=== PATIENT | female | born 1960 | race Caucasian/White ===

== ENCOUNTER → 2017-07-07 16:58 | Outpatient (CLI) | payer BC | END | disposition home or self-care (01) | LOC: D.MAMMO 11:00 | DX: Z12.31 Encounter for screening mammogram for malignant neoplasm of breast (principal) ==

== ENCOUNTER → 2018-07-20 16:53 | Outpatient (CLI) | payer BC | END | disposition home or self-care (01) | LOC: D.MAMMO 13:15 | DX: Z12.31 Encounter for screening mammogram for malignant neoplasm of breast (principal) ==

== ENCOUNTER 2019-07-24 09:26 | Outpatient (CLI) | payer BC | END 2019-07-24 23:59 | disposition home or self-care (01) | LOC: D.MAMMO 09:26 | PROVIDERS: ATTEND Obstetrics & Gynecology | DX: Z12.31 Encounter for screening mammogram for malignant neoplasm of breast (principal) ==

== ENCOUNTER 2019-08-20 08:10 | Day surgery (SDC) | payer BC ==
[~2019-08-20] VITALS: Ht 167.6 cm; Wt 58.1 kg
[~2019-08-20 08:10] MED LIST: COZAAR100 MG PO
[2019-08-20 08:57] LABS: HEMATOCRIT 43.9 % (36.0-48.0); MCH 33.7 pg (26.0-34.0); MCHC 34.2 g/dL (31.0-37.0); MCV 98.7 fL (80.0-100.0); MEAN PLATELET VOLUME 8.7 fL (7.4-10.4); RBC 4.45 10x6/uL (4.00-5.40); RDW 11.8 % (11.5-14.5); WBC 6.4 10x3/uL (4.8-10.8)
[2019-08-20 10:16] VITALS: BP 147/94; Ht 167.6 cm; Wt 58.1 kg
--- NOTE | 2019-08-20 13:50 | NUR ---
1350 FL DIET SERVED.
--- NOTE | 2019-08-24 09:50 | HP ---
PATIENT: AMMY QUINTANILLA MEDICAL RECORD: [id number] ACCOUNT: [id number] LOCATION:[facility] : 62 ADMISSION DATE: 08/20/19 PCP: KHUSHBOO ALMEIDA HISTORY AND PHYSICAL EXAMINATION HISTORY: Ms. Quintanilla is a 59-year-old female smoker with left vocal cord lesion. She is being admitted for microsuspension laryngoscopy with excision of left vocal cord lesion. PAST MEDICAL HISTORY: Includes hypertension. CURRENT MEDICATIONS: Losartan, Flonase, and Zyrtec. ALLERGIES: ASPIRIN AND IBUPROFEN. PHYSICAL EXAMINATION: GENERAL: Healthy-appearing with very hoarse voice. FACE: Normal, symmetric, no lesions. EYES: Sclerae and conjunctivae are normal. EARS: Some chronic changes, but no active infection. NOSE: No masses, polyps, or drainage. ORAL CAVITY AND OROPHARYNX: Tongue protrudes in midline. Pharynx is normal. NECK: No masses. No adenopathy. CHEST: Clear. CARDIOVASCULAR: Regular rate and rhythm. No murmur. Laryngoscopy reveals a large somewhat pedunculated mass in the middle of the left vocal cord moving up and down in the airway, more than 10 mm in size. IMPRESSION: Left vocal cord mass and hoarseness. PLAN: Microsuspension laryngoscopy, excision of left vocal cord lesion. TRANSINT:[id number] Voice Confirmation ID: [id number] DOCUMENT ID: [id number] GINO PHIPPS MD at 0950 CC: [id number] DICTATION DATE: 08/17/19 0854 RECYCLING OPERATOR: 08/17/19 1033 [facility] 08/20/[address] [address]
--- NOTE | 2019-08-24 09:50 | OP ---
PATIENT NAME: AMMY HERNANDEZ MEDICAL RECORD: [id number] :62 LOCATION:D.OPS ADMISSION DATE: SURGEON: KIRT FREEMAN MD DATE OF OPERATION: 08/20/2019 PREOPERATIVE DIAGNOSES: 1. Hoarseness. 2. Left vocal cord lesion. POSTOPERATIVE DIAGNOSES: 1. Hoarseness. 2. Left vocal cord lesion. PROCEDURE: Microsuspension laryngoscopy and excision of left vocal cord lesion. SURGEON: Kirt Freeman MD ANESTHESIA: General orotracheal. BLOOD LOSS: Less than 1 cc. SPECIMENS: Left vocal cord lesion. COMPLICATIONS: None. DISPOSITION: Recovery stable. FINDINGS: Lesion attached to the anterior left true vocal cord over 1 cm in size. PROCEDURE IN DETAIL: She was brought to the operating room and placed in supine position, sedated and intubated by anesthesia with a 6-0 cuffed tube. Table was turned 90 degrees. Head drapes were applied. She was positioned for laryngoscopy. Plastic upper tooth guard was placed. Kleinsasser J laryngoscope was inserted and elevated to expose the lesion and the retractor was attached in position. Microscope with 400 lens was brought in. The right cord was normal, left cord had a large lesion, pretty much obstructing everything could not even see either cord until used the suction to move it out of the way. It was attached to most of the anterior half of the left true vocal cord. It was folded laterally and then an upbiting scissor was used to make a cut on the mucosa along almost the medial edge of the true cord and then it was flipped medially and the same was done on the opposite side leaving as much mucosa to cover the cord as possible all the way up and was divided about 1 mm right before the anterior commissure. The specimen was sent for path. The cord was examined. It was clean and smooth. Afrin pledget was placed. It was removed right before extubation. Kleinsasser J laryngoscope and the plastic tooth guard was removed. She was awakened, extubated, and transported to recovery in good condition. No complications. TRANSINT:[id number] Voice Confirmation ID: [id number] DOCUMENT ID: [id number] OPERATIVE REPORT [id number] AMMY HERNANDEZ KIRT FREEMAN MD at 0950 CC: [id number] DICTATION DATE: 08/20/19 1304 PHYSICS DEPARTMENT CHAIR: 08/20/19 1313 DEP SDC 08/20/19 [facility] [address] [place] [address]
== END 2019-08-20 14:30 | disposition home or self-care (01) ==
LOC: D.OPS 08:10 → D.PAN 10:00 → D.OPS 10:30 → D.PAN 11:10 → D.OPS 11:45
PROVIDERS: Anesthesiology; ATTEND Otolaryngology
DX: J38.3 Other diseases of vocal cords (principal); R49.0 Dysphonia; Z72.0 Tobacco use; I10 Essential (primary) hypertension

== ENCOUNTER 2020-07-28 08:00 | Outpatient (CLI) | payer BC ==
[2019-08-20 10:16] VITALS: BMI 20.7
== END 2020-07-28 14:35 | disposition home or self-care (01) ==
LOC: D.MAMMO 08:00
PROVIDERS: ATTEND Family Medicine
DX: Z12.31 Encounter for screening mammogram for malignant neoplasm of breast (principal)

== ENCOUNTER → 2021-02-09 09:47 | Outpatient (CLI) | payer BC | END | disposition home or self-care (01) | LOC: D.HCCECHO 09:47 | DX: I10 Essential (primary) hypertension (principal) ==

== ENCOUNTER 2021-03-22 16:09 | Inpatient (IN) | payer BC ==
[~2021-03-22] VITALS: Ht 167.6 cm; Wt 58.1 kg
[2021-03-22 16:39] LABS: BILIRUBIN NEGATIVE (NEGATIVE); KETONE LARGE mg/dL (NEGATIVE); NITRITE NEGATIVE (NEGATIVE); UROBILINOGEN NORMAL mg/dL (< 2)
[2021-03-22 16:40] LABS: BACTERIA MANY HPF (NONE SEEN); SQUAMOUS EPITHELIAL 0-5 HPF (0-4); WHITE CELLS - URINE 0-5 HPF (0-4)
[2021-03-22 16:46] LABS: BASOPHILS 0.1 % (0-2); EOSINOPHILS 0 % (0-7); HEMATOCRIT 45.2 % (36.0-48.0); HEMOGLOBIN 15.8 g/dL (12-16); IMMATURE GRANULOCYTES 0.3 % (0-5); LYMPHOCYTE ABS# 1.15 10x3/uL (1.18-3.74); LYMPHOCYTES 6.9 % (15-50); MCH 34.1 pg (26.0-34.0); MCV 97.4 fL (80.0-100.0); MEAN PLATELET VOLUME 9.4 fL (7.4-10.4); MONOCYTES 2.1 % (2-11); NEUTROPHIL ABS# 15.09 10x3/uL (1.56-6.13); NEUTROPHILS 90.6 % (40-80); RBC 4.64 10x6/uL (4.00-5.40); RDW 12.1 % (11.5-14.5); WBC 16.7 10x3/uL (4.8-10.8)
[2021-03-22 16:52] LABS: PLATELET COUNT 305 10x3/uL (130-400)
[2021-03-22 16:57] LABS: CALC OSMOLALITY 278 mosm/kg (275-300); CALCIUM 10.8 mg/dL (8.5-10.1); CARBON DIOXIDE 28.8 mmol/L (21.0-32.0); CHLORIDE - SERUM 98 mmol/L (98-107); CREATININE - SERUM 0.7 mg/dL (0.6-1.3); GLUCOSE 141 mg/dL (74-106); POTASSIUM - SERUM 4.6 mmol/L (3.5-5.1); SODIUM 137 mmol/L (136-145); UREA NITROGEN 22 mg/dL (7-18); eGFR NON AFRICAN AMERICAN > 90 mL/min (90-120)
[2021-03-22 17:07] LABS: ALBUMIN 4.5 g/dL (3.4-5.0); ALKALINE PHOSPHATASE 57 U/L (30-120); ALT (SGPT) 47 U/L (10-68); AMYLASE - SERUM 52 U/L (25-115); BILIRUBIN - TOTAL 0.64 mg/dL (0.2-1.3); PROTEIN - SERUM 8.7 g/dL (6.4-8.2)
[2021-03-22 17:08] LABS: LIPASE 41 U/L (73-393); TROPONIN-I < 0.017 ng/mL (0.000-0.060)
--- NOTE | 2021-03-22 17:27 | NUR ---
pt going via stretcher to CT
--- NOTE | 2021-03-22 17:40 | NUR ---
Pt back in room from CT
[2021-03-22 19:13] VITALS: BP 137/79
--- NOTE | 2021-03-22 19:44 | NUR ---
HOMECARE AND FOLLOW UP INFORMATION PROVIDED, PT MOTHER ACKNOWLEDGED, PT STABLE AT DC
[2021-03-22 19:56] VITALS: BP 140/98
[2021-03-22 20:25] VITALS: BP 136/80
[2021-03-23] VITALS: BP 104/61
[2021-03-23 04:00] VITALS: BP 108/68
[2021-03-23 04:12] VITALS: BMI 20.7
[2021-03-23 05:58] LABS: BASOPHILS 0.2 % (0-2); EOSINOPHILS 0 % (0-7); HEMATOCRIT 38.9 % (36.0-48.0); IMMATURE GRANULOCYTES 0.2 % (0-5); LYMPHOCYTE ABS# 1.73 10x3/uL (1.18-3.74); LYMPHOCYTES 17.5 % (15-50); MCH 32.9 pg (26.0-34.0); MCHC 33.4 g/dL (31.0-37.0); MCV 98.5 fL (80.0-100.0); MONOCYTES 7.6 % (2-11); NEUTROPHIL ABS# 7.39 10x3/uL (1.56-6.13); NEUTROPHILS 74.5 % (40-80); PLATELET COUNT 261 10x3/uL (130-400); RBC 3.95 10x6/uL (4.00-5.40); RDW 12.1 % (11.5-14.5)
[2021-03-23 06:24] LABS: ALKALINE PHOSPHATASE 42 U/L (30-120); BILIRUBIN - TOTAL 0.23 mg/dL (0.2-1.3); CALCIUM 8.8 mg/dL (8.5-10.1); CARBON DIOXIDE 25.3 mmol/L (21.0-32.0); CHLORIDE - SERUM 104 mmol/L (98-107); CREATININE - SERUM 0.7 mg/dL (0.6-1.3); GLUCOSE 102 mg/dL (74-106); PROTEIN - SERUM 6.7 g/dL (6.4-8.2); SODIUM 137 mmol/L (136-145); eGFR NON AFRICAN AMERICAN > 90 mL/min (90-120)
[2021-03-23 06:31] LABS: WBC 9.9 10x3/uL (4.8-10.8)
[2021-03-23 07:08] LABS: ALBUMIN 3.3 g/dL (3.4-5.0); ALT (SGPT) 26 U/L (10-68); CALC OSMOLALITY 274 mosm/kg (275-300); UREA NITROGEN 16 mg/dL (7-18)
[2021-03-23 08:00] VITALS: BP 128/71
[2021-03-23 14:49] VITALS: BMI 20.6
--- NOTE | 2021-03-23 17:27 | NUR ---
0700 AWAKE IN BED ENCOURAGED IS USE PULLING 2000ML REFUSES SCD EDUCATED IMPORTANCE OF SCD VERBALIZED UNDERSTAIDING
--- NOTE | 2021-03-23 17:35 | NUR ---
1300 PT UNHOOKED IV AND AMBULATED IN [place] PER SELF WITHOUT RN KNOWING UPON RETURN RN RESTARTED NS AND MORPHINE HOGSHEAD INSPECTOR
--- NOTE | 2021-03-23 17:39 | NUR ---
1400 UNSURE IF PT IS GOING OUT TO SMOKE WILL CONFRONT HER
[2021-03-23 18:25] VITALS: Ht 167.6 cm; Wt 58.1 kg
--- NOTE | 2021-03-23 18:40 | NUR ---
1415 PT STATED SHE WAS NOT SMOKING
--- NOTE | 2021-03-23 19:30 | NUR ---
BEDSIDE REPORT. CHILD CARE ASSOCIATE TEACHER ON, BUT FLUID CHANNEL IS OFF, RESTARTED NS @ 125 PER ORDER. PT CURRENTLY DENIES PAIN/NAUSEA. PASSING GAS, CPOC.
[2021-03-23 20:00] VITALS: BP 120/68
[2021-03-24 04:00] VITALS: BP 124/79
--- NOTE | 2021-03-24 05:00 | NUR ---
ENTERED ROOM, PT AWAKE/ALERT. IV FLUID CHANNEL IS OFF AGAIN. ASKED PT IF SHE IS TURNING CHANNEL OFF, SHE REPLIED YES, "I'M FEELING GREAT, HAVEN'T REALLY NEEDED PAIN MEDICINE, AND DRINKING FLUIDS W/O N/V." RESTARTED NS, BUT SET TO KVO INCASE PT DOES REQUIRE HVAC MAINTENANCE TECHNICIAN. VERBALIZED UNDERSTANDING. PASSING GAS, NO BMs OF YET. CPOC.
--- NOTE | 2021-03-24 05:06 | NUR ---
I have reviewed this patient and I concur with the Shift Assessment completed by the Licensed Practical Nurse today this shift.
--- NOTE | 2021-03-24 06:03 | NUR ---
SIDE-LYING IN BED, EYES CLOSED, RESPIRATIONS EVEN/NON-LABORED. NO S/SX OF DISTRESS IV FLUID CHANNEL OFF AGAIN, BUT RN BURN STILL ACTIVE. RESTARTED FLUIDS, MONITORED PUMP FOR A FEW MINUTES TO ASSURE IT DOES NOT TURN OFF SPONTANEOUSLY. PLUGGED IN TO WALL. CTM.
--- NOTE | 2021-03-24 06:32 | NUR ---
PT OUT AMBULATING IN [place], REPORTS SHE JUST PASSED MEDIUM SIZED BM. NO PAIN/N/V. REQUESTS ADVANCED DIET. INFORMED ORDER STATES ONLY [facility], BUT WILL PASS IN REPORTS FOR DAY NURSE TO NOTIFY MD OF PROGRESS AND REQUEST ADVANCEMENT.
[2021-03-24 10:12] VITALS: BP 153/96
[2021-03-24 12:29] VITALS: BP 141/88
[2021-03-24] MEDS ORDERED: MIRALAX17 GM PO (13:15)
--- NOTE | 2021-03-24 14:33 | NUR ---
SALINE LOCK REMOVED AND DRESSING APPLIED, DISCHARGE PAPERS WITH PATIENT, AMBULATORY TO CATCH A CAB AND RIDE HOME. MORPHINE IN SALES REPRESENTATIVE AIRCRAFT WASTED WITH WITNESS.
== END 2021-03-24 14:35 | disposition home or self-care (01) | DRG 390 ==
LOC: D.ER 16:09 → D.MS 19:55
PROVIDERS: Family Medicine; ADMIT Family Medicine; ATTEND Family Medicine
DX: K56.600 Partial intestinal obstruction, unspecified as to cause (principal); D72.829 Elevated white blood cell count, unspecified; I10 Essential (primary) hypertension; Z72.0 Tobacco use; R11.0 Nausea